=== PATIENT | female | born 1975 | race Caucasian/White ===

== ENCOUNTER 2025-06-16 12:05 | Emergency (ER) | payer OTHER ==
--- OUTSIDE RECORDS SUMMARY | 2025-06-16 12:09 | XMS REPORT | Continuity of Care Document ---
Author Name Unknown Address [address] [facility] [address] [place] [address] [facility] Address [address] 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 Role Phone MANUELA TAYLOR Attending Clinician Unavailable Dona Attending Clinician UnavailSADAF Oliveira Attending Clinician Unavailabl e JERO JEWELL Attending Clinician Un available Linda Ramos CMA Attending Clinician [phone] MARCO LAL Attending Clinician Unavailable ASIM MAHMOOD Attending Clinician Unavail able SANTIAGO FARNSWORTH Attending Clinician Unavailab ELLIS Sweet Attending Clinician Unavailable NOLVIA STARKEY Attending Clinician Unavailable ROMERO LAM Attending Clinician Jerome Carcamo Admitting Clinician Unavailabl e Payers Payer Name Policy Type Policy Number Effective Date Expirati on Date Source Encounters Start Date/Time End Date/Time Encounter Type Admission Type Attending Clinicians Care Facility Care Department Encounter ID Source 2023-04-11 20:15:00 2023-04-11 23:41:00 Emergency ER MANUELA TAYLOR [facility] [id number] [facility] 2022-05-28 08:29:00 2022-05-28 10:02:00 Emergency ER SADAF REYES [facility] [id number] [facility] 2022-01-02 09:31:00 2022-01-02 13:17:00 Emergency E JERO JEWELL [facility] 2021-08-07 11:00:00 2021-08-07 12:25:22 Office Visit Linda Ramos [facility] [id number] 2021-08-07 09:16:10 2021-08-07 10:25:22 Outpatient HHD HHD [id number] [facility] ent 2018-04-11 05:33:00 2018-04-11 06:40:00 Emergency ER MARCO LAL [facility] [id number] [facility] 2017-03-31 18:05:00 2017-03-31 20:40:00 Emergency ER ASIM MAHMOOD [facility] [id number] [facility] 2015-10-02 20:54:00 2015-10-02 23:20:00 Emergency ER SANTIAGO FARNSWORTH [facility] [id number] [facility] 2015-05-03 23:29:00 2015-05-04 00:15:00 Emergency ER ELLIS ALMENDAREZ [facility] [id number] [facility] 2013-10-01 15:50:00 2013-10-01 17:23:00 Emergency ER BA, NOLVIA [facility] [id number] [facility] 2009-06-21 06:22:00 2009-06-21 08:15:00 Emergency ER JASIVRARAROMERO Belcher [facility] [id number] [facility] 2008-01-26 12:26:00 2008-01-26 14:18:00 Emergency ER BA, NOLVIA [facility] [id number] [facility]
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
[2025-06-16 14:39] VITALS: O2SAT 100
[2025-06-16 14:40] VITALS: BP 126/74; TEMP 98
== END 2025-06-16 14:29 | disposition home or self-care (01) ==
LOC: ER 12:05
DX: S02.2XXA Fracture of nasal bones, initial encounter for closed fracture (principal); S30.0XXA Contusion of lower back and pelvis, initial encounter; Y00.XXXA Assault by blunt object, initial encounter
CPT/HCPCS: 70450; 70486; 71045; 76377; 99283